=== PATIENT | male | born 1995 | race Asian ===

== ENCOUNTER 2020-05-07 19:18 | Emergency (ER) | payer OTHER ==
[~2020-05-07] VITALS: Ht 175.3 cm; Wt 75.2 kg
[2020-05-07] MEDS ORDERED: SODIUM CHLORIDE 0.9% 1,000 ML IV ONE (19:59)
[2020-05-07] MEDS ORDERED: SODIUM CHLORIDE 0.9% 1,000ML IVBOLUS ONE (20:00)
[2020-05-07] MEDS ORDERED: ONDANSETRON 2MG/ML, 2ML IVPush ONE (20:00)
[2020-05-07] MEDS ORDERED: SODIUM CHLORIDE FLUSH 10ML SYR IVF ONE (20:00)
[2020-05-07] MEDS ORDERED: ONDANSETRON 2MG/ML, 2ML ONE (20:14)
--- NOTE | 2020-05-07 20:32 | NUR ---
pt to ed w abd pain/n/v x2 days. sts has this issue q1 yr and has had mult scopes and his doctors think its r/t stress. sts went to hospital in [facility] yest for same. piv est labs and ua sent familiafran per oct. call francisca. vss. as
[2020-05-07 20:39] LABS: BASOPHILS # (AUTO) 0.03 x10^3/uL (0-0.1); BASOPHILS % (AUTO) 0 % (0-1); EOSINOPHILS # (AUTO) 0.01 x10^3/uL (0-0.4); EOSINOPHILS % (AUTO) 0 % (1-7); LYMPHOCYTES # (AUTO) 2.31 x10^3/uL (1-3.4); LYMPHOCYTES % (AUTO) 20 % (22-44); MD NO; MEAN CORPUSCULAR HEMOGLOBIN 28.6 pg (27.5-34.5); MEAN CORPUSCULAR HGB CONC 32.7 g/dL (33.2-36.2); MEAN CORPUSCULAR VOLUME 87.3 fL (81-97); MEAN PLATELET VOLUME 7.8 fL (7.4-10.4); MONOCYTES # (AUTO) 0.96 x10^3/uL (0.2-0.8); MONOCYTES % (AUTO) 8 % (2-9); NEUTROPHILS # (AUTO) 8.08 x10^3/uL (1.8-6.8); NEUTROPHILS % (AUTO) 71 % (42-75); PLATELET COUNT 290 x10^3/uL (130-400); RED BLOOD COUNT 4.87 x10^6/uL (4.38-5.82); RED CELL DISTRIBUTION WIDTH 13.5 % (9.4-14.8)
[2020-05-07 20:45] LABS: ALANINE AMINOTRANSFERASE 28 U/L (12-78); ALBUMIN 4.4 g/dL (3.4-5.0); ANION GAP 9 mmol/L (5-15); CALCIUM 9.4 mg/dL (8.5-10.1); CHLORIDE 107 mmol/L (98-107)
[2020-05-07 20:48] LABS: ALKALINE PHOSPHATASE 61 U/L (45-117); BILIRUBIN,TOTAL 1.4 mg/dL (0.2-1.0); CREATININE 1.08 mg/dL (0.7-1.3); TOTAL PROTEIN 8.3 g/dL (6.4-8.2)
[2020-05-07 20:51] LABS: MICROSCOPIC INDICATED
--- NOTE | 2020-05-07 20:58 | NUR ---
bedside report to pati israel pt c/o pain will notify . pt up for recheck. as
--- NOTE | 2020-05-07 21:00 | NUR ---
late entry d/t pt care: bs report from arnold israel, pt care transferred at this time. pt resting on gurney, NAD, appears uncomfortable, holding abdomen and groaning, informed. wctm. waiting for additional tests results.
[2020-05-07] MEDS ORDERED: HYDROmorphone 1 MG/ML, 1ML INJ ONE (21:08)
[2020-05-07] MEDS ORDERED: HYDROmorphone 2 MG/ML, 1ML IVPush PRN (21:30)
[2020-05-07] MEDS ORDERED: OMNIPAQUE 350 MG/ML, 100ML BOTTLE ONE (21:46)
--- NOTE | 2020-05-07 22:00 | NUR ---
pt back from ct, states pain is decreased after interventions, NAD, appears comfortable, waiting for ct read, wctm.
[2020-05-07 22:43] VITALS: BP 138/95
--- NOTE | 2020-05-07 22:44 | NUR ---
Patient given discharge instructions and they have confirmed that they understand the instructions. Patient ambulatory with steady gait. NAD, GIVEN ICE WATER FOR COMFORT, STATES FRIEND IS COMING TO GIVE HIM RIDE, DENIES ADDITIONAL QUESTIONS OR NEEDS AT THIS TIME. NO PERSONAL BELONGINGS LEFT IN ROOM AFTER DC.
== END 2020-05-07 23:02 | disposition home or self-care (01) ==
LOC: ED 19:48
DX: K29.00 Acute gastritis without bleeding (principal)
CPT/HCPCS: 36415; 74177; 80053; 81001; 83690; 85025; 96361; 96374; 96375; 99285; J1170; J2405; J7030; Q9967

== ENCOUNTER 2020-05-08 11:41 | Emergency (ER) | payer OTHER ==
[~2020-05-08] VITALS: Ht 175.3 cm; Wt 70.0 kg
[2020-05-08] MEDS ORDERED: HALOPERIDOL 5 MG/ML ONE (12:10)
[2020-05-08] MEDS ORDERED: SODIUM CHLORIDE FLUSH 10ML SYR IVF ONE (12:30)
[2020-05-08] MEDS ORDERED: METOCLOPRAMIDE 5 MG/ML, 2ML IVPush ONE ×2 (12:30→13:30)
[2020-05-08] MEDS ORDERED: HALOPERIDOL 5 MG/ML IV ONE (12:30)
[2020-05-08] MEDS ORDERED: SODIUM CHLORIDE 0.9% 1,000ML IVBOLUS ONE (12:30)
--- NOTE | 2020-05-08 12:33 | NUR ---
pt presents to ED with c/o severe epigatsric pain, n/v x 3 days. pt has had numerous episodes with same symptomology, hx multiple endoscopies in hometown (resides in [place]) to find etiology. pt unable to report any definitive diagnosis given. pt placed on all monitors, PIV placed, labs drawn and sent to lab. Pt given urinal with antiseptic wipes, instructed to provide clean catch ua when able. per GIL Bustamante RN to hold reglan at this time, RN instructed to administer reglan and await response. IVF infusing. pt is not vomiting. friend at bedside. warm blanket provided, call light in reach. awaiting labs and response to med.
[2020-05-08 12:35] LABS: BASOPHILS # (AUTO) 0.06 x10^3/uL (0-0.1); BASOPHILS % (AUTO) 1 % (0-1); EOSINOPHILS # (AUTO) 0.03 x10^3/uL (0-0.4); EOSINOPHILS % (AUTO) 0 % (1-7); LYMPHOCYTES # (AUTO) 1.79 x10^3/uL (1-3.4); LYMPHOCYTES % (AUTO) 17 % (22-44); MD NO; MEAN CORPUSCULAR HEMOGLOBIN 28.8 pg (27.5-34.5); MEAN CORPUSCULAR HGB CONC 32.8 g/dL (33.2-36.2); MEAN CORPUSCULAR VOLUME 87.6 fL (81-97); MEAN PLATELET VOLUME 7.7 fL (7.4-10.4); MONOCYTES # (AUTO) 0.71 x10^3/uL (0.2-0.8); MONOCYTES % (AUTO) 7 % (2-9); NEUTROPHILS # (AUTO) 8.14 x10^3/uL (1.8-6.8); NEUTROPHILS % (AUTO) 76 % (42-75); PLATELET COUNT 272 x10^3/uL (130-400); RED BLOOD COUNT 4.91 x10^6/uL (4.38-5.82); RED CELL DISTRIBUTION WIDTH 13.4 % (9.4-14.8)
--- NOTE | 2020-05-08 12:45 | NUR ---
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 friend at bedside.
[2020-05-08 12:46] LABS: ALANINE AMINOTRANSFERASE 26 U/L (12-78); ALBUMIN 4.2 g/dL (3.4-5.0); ANION GAP 11 mmol/L (5-15); CALCIUM 9.2 mg/dL (8.5-10.1); CHLORIDE 107 mmol/L (98-107); CREATININE 1.21 mg/dL (0.7-1.3)
[2020-05-08 12:48] LABS: ALKALINE PHOSPHATASE 59 U/L (45-117); BILIRUBIN,TOTAL 1.6 mg/dL (0.2-1.0); TOTAL PROTEIN 7.8 g/dL (6.4-8.2)
--- NOTE | 2020-05-08 13:29 | NUR ---
pt reassessed by EDMD Law, pt awake, alert, requesting pain medication for epigastric pain, anxiety returned. morphine and reglan order received to control pt pain and nausea.
[2020-05-08] MEDS ORDERED: MORPHINE SULFATE 4 MG/ML, 1ML IVPush PRN (13:30)
[2020-05-08] MEDS ORDERED: ONDANSETRON 2MG/ML, 2ML ONE (13:37)
[2020-05-08] MEDS ORDERED: MORPHINE SULFATE 4 MG/ML, 1ML ONE (13:37)
[2020-05-08] MEDS ORDERED: METOCLOPRAMIDE 5 MG/ML, 2ML ONE (13:38)
--- NOTE | 2020-05-08 14:13 | NUR ---
Report from CHRIS Duggan. Pt care responsibilities assumed.
[2020-05-08 14:15] VITALS: BP 148/79
--- NOTE | 2020-05-08 14:16 | NUR ---
report given to CHRIS Valdovinos who is assuming care.
[2020-05-08 15:21] LABS: MICROSCOPIC NOT IND
== END 2020-05-08 15:08 | disposition home or self-care (01) ==
LOC: ED 12:17
DX: K29.00 Acute gastritis without bleeding (principal); R10.13 Epigastric pain; R11.2 Nausea with vomiting, unspecified; G89.29 Other chronic pain
CPT/HCPCS: 36415; 80053; 81003; 83690; 85025; 93005; 96361; 96374; 96375; 99284; J1630; J2270; J2765; J7030